=== PATIENT | female | born 1975 | race Caucasian/White ===

== ENCOUNTER 2019-01-09 10:47 | Emergency (ER) | payer MEDICARE, BC ==
--- NOTE | 2019-01-09 11:29 | EDM.PDOC ---
ED HPI GENERAL MEDICAL PROBLEM - General Chief Complaint: General Stated Complaint: POSS HIGH IRON LEVELS Time Seen by Provider: 01/09/19 11:28 Source of Information: Reports: Patient History Limitations: Reports: No Limitations - History of Present Illness INITIAL COMMENTS - FREE TEXT/NARRATIVE: 43-year-old female attends the ED because she simply can't get into the clinic. She is concerned that her iron levels might be running too high as she has been taking an iron supplement twice daily almost for the last 2 years. She states it with orange juice and vitamin C and has found a product that seems to be absorbed better. Lately she's been able to cut down the iron supplement once daily. Over she has no way of knowing where she is adamant in terms of her iron supplementation and hemoglobins hematocrit levels. She feels well. She states she is chronically constipated and has to use GoLYTELY at least once weekly to keep her bowels regular. She doesn't feel the iron supplements necessary make her any worse. She doesn't feel faint or lightheaded. Periods are still fairly heavy. Onset: Gradual Onset Date: 01/09/19 (Has benign deficient for about 2 years and is been on supplementation. Once general what her current values are.) Duration: Chronic Location: Reports: Other (Chronic iron deficiency anemia for evaluation of iron levels.) Quality: Reports: Other (No pain.) Severity: Moderate (Is to have moderate severe iron deficiency with hemoglobins in the sevens.) Improves with: Reports: Other (She believes that her hemoglobin last time she had a check was 12.) Worsens with: Reports: None Context: Reports: Other (Chronic iron deficiency anemia likely secondary to persistent loss through menstrual cycle). Denies: Activity, Exercise, Lifting, Sick Contact, Trauma Associated Symptoms: Reports: Malaise, Other. 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 Musculoskeletal History: Reports: Other (See Below) Other Musculoskeletal History: shoulder surgery left arm Social & Family History - Tobacco Use Smoking Status *Q: Never Smoker Second Hand Smoke Exposure: No - Caffeine Use Caffeine Use: Reports: Tea - Recreational Drug Use Recreational Drug Use: No - Living Situation & Occupation Living situation: Reports: Occupation: Unemployed ED ROS GENERAL - Review of Systems Review Of Systems: See Below Constitutional: Reports: Fatigue. Denies: Fever, Chills, Malaise, Weakness, Decreased Appetite, Weight Loss HEENT: Reports: No Symptoms Respiratory: Reports: No Symptoms Cardiovascular: Reports: No Symptoms Endocrine: Reports: Fatigue GI/Abdominal: Reports: Constipation (Chronic severe constipation. Not necessarily worse on iron supplementation.) : Reports: Other (Heavy menstrual cycles.) Musculoskeletal: Reports: No Symptoms Skin: Reports: No Symptoms Neurological: Reports: No Symptoms Psychiatric: Reports: No Symptoms Hematologic/Lymphatic: Reports: No Symptoms ED EXAM, GENERAL - Physical Exam Exam: See Below Exam Limited By: No Limitations General Appearance: Alert, WD/WN, No Apparent Distress, Other (Vital signs show she is afebrile with temperature 36.1. Pulse is 80 and sinus respiratory is 20. BP 139/80.) Eye Exam: Bilateral Eye: Normal Inspection (Peripheral margins are normal in color.) Ears: Normal TMs Throat/Mouth: Normal Inspection, Normal Lips, Normal Oropharynx Head: Atraumatic, Normocephalic Neck: Normal Inspection, Supple, Non-Tender, Full Range of Motion. No: Carotid Bruit, Lymphadenopathy (L), Lymphadenopathy (R), Thyromegaly Respiratory/Chest: No Respiratory Distress, Lungs Clear, Normal Breath Sounds, No Accessory Muscle Use Cardiovascular: Normal Peripheral Pulses, Regular Rate, Rhythm, No Edema, No Gallop, No Murmur, No Rub Peripheral Pulses: 3+: Posterior Tibial (L), Posterior Tibial (R), Dorsalis Pedis (L), Dorsalis Pedis (R) Extremities: Normal Inspection, Normal Range of Motion, Non-Tender, Normal Capillary Refill, Pedal Edema, Other (Normal color in her palmar creases.) Neurological: Alert, Oriented, CN II-XII Intact, Normal Cognition, Normal Gait Psychiatric: Normal Affect, Normal Mood Skin Exam: Warm, Dry, Intact, Normal Color, No Rash Course - Vital Signs Last Recorded V/S: Last Vital Signs Temp 36.1 C 01/09/19 11:01 Pulse 80 01/09/19 11:01 Resp 20 01/09/19 11:01 BP 139/80 01/09/19 11:01 Pulse Ox 100 01/09/19 11:01 - Orders/Labs/Meds Labs: Laboratory Tests 01/09/19 01/09/19 01/09/19 Range/Units 11:36 11:36 11:36 WBC 8.08 (3.98-10.04) K/mm3 RBC 4.66 (3.98-5.22) M/mm3 Hgb 14.3 (11.2-15.7) gm/dl Hct 42.1 (34.1-44.9) % MCV 90.3 (79.4-94.8) fl MCH 30.7 (25.6-32.2) pg MCHC 34.0 (32.2-35.5) g/dl RDW Std Deviation 43.3 (36.4-46.3) fL Plt Count 262 (182-369) K/mm3 MPV 9.9 (9.4-12.3) fl Neut % (Auto) 73.8 H (34.0-71.1) % Lymph % (Auto) 19.8 (19.3-51.7) % Mitchell % (Auto) 4.6 L (4.7-12.5) % Eos % (Auto) 1.5 (0.7-5.8) Baso % (Auto) 0.2 (0.1-1.2) % Neut # (Auto) 5.96 (1.56-6.13) K/mm3 Lymph # (Auto) 1.60 (1.18-3.74) K/mm3 Mitchell # (Auto) 0.37 H (0.24-0.36) K/mm3 Eos # (Auto) 0.12 (0.04-0.36) K/mm3 Baso # (Auto) 0.02 (0.01-0.08) K/mm3 Sodium 138 (136-145) mEq/L Potassium 3.9 (3.5-5.1) mEq/L Chloride 105 (98-107) mEq/L Carbon Dioxide 27 (21-32) mEq/L Anion Gap 9.9 (5-15) BUN 11 (7-18) mg/dL Creatinine 0.9 (0.55-1.02) mg/dL Est Cr Clr Drug Dosing 73.90 mL/min Estimated GFR (MDRD) > 60 (>60) mL/min BUN/Creatinine Ratio 12.2 L (14-18) Glucose 91 (74-106) mg/dL Calcium 9.0 (8.5-10.1) mg/dL Iron 74 (50-170) ug/dL TIBC 283 (100-400) ug/dL % Saturation 26 (20-55) % Transferrin 226 (202-364) mg/dL Total Bilirubin 0.3 (0.2-1.0) mg/dL AST 11 L (15-37) U/L ALT 21 (14-59) U/L Alkaline Phosphatase 52 (46-116) U/L Total Protein 7.2 (6.4-8.2) g/dl Albumin 3.7 (3.4-5.0) g/dl Globulin 3.5 gm/dL Albumin/Globulin Ratio 1.1 (1-2) TSH 3rd Generation 2.243 (0.358-3.74) uIU/mL - Radiology Interpretation Free Text/Narrative:: 43-year-old female presents the ED primarily for evaluation of chronic iron deficiency anemia. She reports she been taking iron supplementation for a couple of years to rebuild her iron stores. Last hemoglobin was reportedly 12. This was 3 months ago. She can get into the clinic and therefore she came to the ED for evaluation. She states otherwise she's been eating and drinking normally. She has a history of chronic severe constipation and has to use GoLYTELY once weekly to make sure her bowels are regular. Plan she will have his CBC and CMP carried out and iron panel. - Re-Assessments/Exams Free Text/Narrative Re-Assessment/Exam: 01/09/19 12:54 White blood cell count is 8.08. Differential by auto differential is 74% neutrophils. Hemoglobin is 14.3 with hematocrit of 42.1. MCV is normal at 90.3. Platelet counts 262,000. Sodium 138 with a potassium of 3.9. Chloride is 105 with a bicarbonate of 27. Anion gap is 9.9. BUN is 11 with a creatinine of 0.9. GFR is greater than 60. Glucose is 91 calcium is 9.0. Iron is 74 with normal being 50-170 in our lab. Total iron binding capacity is 283 with normal our lab being up to 100-400. Since saturation was 26.. Normal is 20- 55. Transferrin is 226. Normal is 202-364. Total bilirubin is 0.3. AST is 11 ALT is 21. Alk phosphatase 52. Total protein is 7.2 with albumin fraction of 3.7. TSH is 2.24 normal. Patient reassured that at present her iron levels are in the normal range. However they are not overly high and I would advise her to continue her iron supplementation and daily basis with vitamin C. Advised probably will need to continue at least until she reaches menopause. After this with no further blood loss her iron stores will likely remain within normal limits. Departure - Departure Time of Disposition: 13:08 Disposition: Home, Self-Care 01 Condition: Fair Clinical Impression: Iron deficiency anemia Qualifiers: Iron deficiency anemia type: other iron deficiency Qualified Code(s): D50.8 - Other iron deficiency anemias - Discharge Information *PRESCRIPTION DRUG MONITORING PROGRAM REVIEWED*: Not Applicable *COPY OF PRESCRIPTION DRUG MONITORING REPORT IN PATIENT GRANT: Not Applicable Instructions: Anemia Referrals: PCP,None [Primary Care Provider] - Forms: ED Department Discharge Additional Instructions: Evaluation the emergency room today in regards to request to have your iron levels checked since you have a history of chronic iron deficiency anemia on iron supplementation for greater than 2 years. The lab tests done today reveal that you have a normal hemoglobin and hematocrit. This means Florecita is a reservoir is in your bone marrow spleen and other body parts have been replenished. This usually takes at least a year of oral iron therapy to do. The serum iron itself is low normal as is the serum transferrin levels. This means that you probably should stay on iron supplementation until after menopause. Current treatment plan once daily with orange juice/vitamin C seems to be working well for you and I would advise you to continue in this regard. Other abnormalities were identified in your lab work both on your hematology and/or chemistry today The results will be sent to your primary care provider.
== END 2019-01-09 13:19 | disposition home or self-care (01) ==
LOC: JD.ED 10:47
DX: D50.8 Other iron deficiency anemias (principal); Z88.2 Allergy status to sulfonamides; Z88.5 Allergy status to narcotic agent
CPT/HCPCS: 36415; 80053; 83540; 84443; 84466; 85025; 99282